=== PATIENT | male | born 1940 | race Caucasian/White ===

== ENCOUNTER 2019-04-11 17:41 | Observation (INO) | payer MEDICARE, OTHER ==
[~2019-04-11] VITALS: Ht 172.7 cm; Wt 106.2 kg
[2019-04-11] MEDS ORDERED: NS IV 1000 ML 1,000 ML IV ONE (18:17)
[2019-04-11] MEDS ORDERED: NS IV 1000 ML 1,000 ML IV SCH (18:17)
--- NOTE | 2019-04-11 18:23 | ED Syncope ---
General Chief Complaint: Neurological Problems Stated Complaint: UNRESPONSIVE Nursing Triage Note: PT PRESENTS TO ED VIA EMS WITH C/O GENERALIZED WEAKNESS AND FATIGUE AFTER SPENDING ALL AFTERNOON AT [email or web address] WITH FAMILY. PT WAS ASSISTED FROM WHEELCHAIR TO TOILET WHEN "LEGS GAVE OUT FROM UNDERNEATH HIM" AND PER PT , PT WAS UNRESPONSIVE FOR 5 MINUTES. PT DENIES UNRESPONSIVENESS AND STATES HE "REMEMBERS EVERYTHING." PT RECENTLY HAD DYSENTERY LAST WEEK AND HAS FELT WEAK AND FATIGUED SINCE. PT HAS LEFT-SIDED ARM DEFICIT FROM PREVIOUS STROKE. PT A/OX3 UPON ARRIVAL. Source of Information: Patient, EMS, Family (daughter), Care Home Records, Spouse Exam Limitations: No Limitations History of Present Illness Date Seen by Provider: Apr 11, 2019 Time Seen by Provider: 17:48 Initial Comments Patient presents to the ER by EMS and is accompanied by his and daughter who are helping care for him with chief complaint of a syncopal episode. He was down from his nursing facility in [facility] with family to attend a [employer] celebration event outside today and then made it back to the hotel and he was feeling particularly tired and when they took him to go to the bathroom in his wheelchair he said he told them he was slipping out of the wheelchair. He then slid down to the floor landed on his rump and says he could remember them talking the entire time but his family says that he was about a minute and a half that he would not respond or open his eyes and then about 5 minutes before he would start talking again. His blood sugar was 150 per EMS. 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 They report he has a 70% paralysis. The patient reports that last weekend he had some dysentery lasted for about 3 days and he's also had a little more increased cough productive of sputum in the past 3 weeks. He has not been seen by anybody nor put on any antibiotics. He denies a history of COPD asthma or using any inha lers. He denies any fevers or chills. He does feel very dehydrated. He has no new weakness or numbness. He has chronic numbness in bilateral lower extremities which makes it hard for him to assist with standing and transferring out of his wheelchair. He has long-standing diabetes greater than 10 years on insulin. He denies striking his head and so does his family. His daughter said she sternal rub to him several times within the first minute before he began to respond to the discomfort. Allergies and Home Medications Allergies Coded Allergies: No Known Drug Allergies (Unverified , 04/11/19) Patient Home Medication List Home Medication List Reviewed: Yes Review of Systems Constitutional: No chills, No dizziness, No fever, No malaise; weakness EENTM: No ear discharge, No ear pain Respiratory: see HPI, cough, phlegm; No short of breath, No wheezing Cardiovascular: No chest pain, No palpitations Gastrointestinal: No abdominal pain, No nausea, No vomiting Genitourinary: decreased output; No discharge; dysuria; No frequency, No hematuria, No hesitancy Musculoskeletal: No back pain, No joint pain Psychiatric/Neurological: Denies Anxiety, Denies Depressed Past Mmtoopd-Fcneam-Zoxeiu Hx Patient Social History Alcohol Use: Denies Use Recreational Drug Use: No Smoking Status: Never a Smoker Recent Foreign Travel: No Contact w/Someone Who Travel: No Recent Infectious Disease Expo: No Physical Exam Vital Signs Vital Signs - First Documented 04/11/19 18:00 Temp 98.3 Pulse 92 Resp 19 B/P (MAP) 107/67 (80) Pulse Ox 93 O2 Delivery Room Air Capillary Refill : Less Than 3 Seconds Height, Weight, BMI Height: 5'10.00" Weight: 224lbs. oz. 101.024744hj; BMI Method:Stated General Appearance: No Apparent Distress, Other (left hemiparesis with contractures, mild) HEENT: PERRL/EOMI, TMs Normal, Normal ENT Inspection, Pharynx Normal, Moist Mucous Membranes Neck: Full Range of Motion, Normal Inspection, Supple Cardiovascular: Regular Rate, Rhythm, No Edema, Normal Peripheral Pulses Respiratory: No Accessory Muscle Use, No Respiratory Distress, Rhonci; No Wheezing Gastrointestinal: Normal Bowel Sounds, Non Tender, Soft Extremities: Normal Capillary Refill, Normal Inspection, Non Tender, No Calf Tenderness, No Pedal Edema Neurologic/Psychiatric: Alert, Oriented x3, Other (stable per reported left- sided deficits upper and lower extremities and left side of face) Cranial Nerves: Normal Hearing, PERRL, Other (quiet, mumbling speech) Progress/Results/Core Measures Results/Orders Lab Results Laboratory Tests Test 04/11/19 17:50 04/11/19 18:23 04/11/19 19:05 04/11/19 20:18 Range/Units White Blood Count 8.9 4.3-11.0 10^3/uL Red Blood Count 4.58 4.35-5.85 10^6/uL Hemoglobin 12.0 L 13.3-17.7 G/DL Hematocrit 37 L 40-54 % Mean Corpuscular Volume 81 80-99 FL Mean Corpuscular Hemoglobin 26 25-34 PG Mean Corpuscular Hemoglobin Concent 32 32-36 G/DL Red Cell Distribution Width 14.8 H 10.0-14.5 % Platelet Count 324 130-400 10^3/uL Mean Platelet Volume 11.0 H 7.4-10.4 FL Neutrophils (%) (Auto) 70 42-75 % Lymphocytes (%) (Auto) 17 12-44 % Monocytes (%) (Auto) 9 0-12 % Eosinophils (%) (Auto) 4 0-10 % Basophils (%) (Auto) 1 0-10 % Neutrophils # (Auto) 6.3 1.8-7.8 X 10^3 Lymphocytes # (Auto) 1.5 1.0-4.0 X 10^3 Monocytes # (Auto) 0.8 0.0-1.0 X 10^3 Eosinophils # (Auto) 0.3 0.0-0.3 10^3/uL Basophils # (Auto) 0.1 0.0-0.1 10^3/uL Prothrombin Time 13.3 12.2-14.7 SEC INR Comment 1.0 0.8-1.4 Activated Partial Thromboplast Time 26 24-35 SEC Sodium Level 139 135-145 MMOL/L Potassium Level 4.1 3.6-5.0 MMOL/L Chloride Level 108 H 98-107 MMOL/L Carbon Dioxide Level 18 L 21-32 MMOL/L Anion Gap 13 5-14 MMOL/L Blood Urea Nitrogen 19 H 7-18 MG/DL Creatinine 1.66 H 0.60-1.30 MG/DL Estimat Glomerular Filtration Rate 40 BUN/Creatinine Ratio 11 Glucose Level 138 H 70-105 MG/DL Calcium Level 9.3 8.5-10.1 MG/DL Corrected Calcium 9.5 8.5-10.1 MG/DL Magnesium Level 1.8 1.8-2.4 MG/DL Total Bilirubin 0.3 0.1-1.0 MG/DL Aspartate Amino Transf (AST/SGOT) 20 5-34 U/L Alanine Aminotransferase (ALT/SGPT) 20 0-55 U/L Alkaline Phosphatase 82 40-136 U/L Troponin I < 0.028 <0.028 NG/ML C-Reactive Protein High Sensitivity 0.22 0.00-0.50 MG/DL B-Type Natriuretic Peptide 75.8 <100.0 PG/ML Total Protein 6.2 L 6.4-8.2 GM/DL Albumin 3.8 3.2-4.5 GM/DL Serum Alcohol < 10 <10 MG/DL Glucometer 134 H 70-110 MG/DL Urine Color YELLOW Urine Clarity CLEAR Urine pH 6.5 5-9 Urine Specific [place] 1.010 L 1.016-1.022 Urine Protein 2+ H NEGATIVE Urine Glucose (UA) NEGATIVE NEGATIVE Urine Ketones NEGATIVE NEGATIVE Urine Nitrite NEGATIVE NEGATIVE Urine Bilirubin NEGATIVE NEGATIVE Urine Urobilinogen NORMAL NORMAL MG/DL Urine Leukocyte Esterase 1+ H NEGATIVE Urine RBC (Auto) NEGATIVE NEGATIVE Urine RBC NONE /HPF Urine WBC 2-5 /HPF Urine Crystals NONE /LPF Urine Bacteria TRACE /HPF Urine Casts NONE /LPF Urine Mucus NEGATIVE /LPF Urine Culture Indicated NO Urine Opiates Screen NEGATIVE NEGATIVE Urine Oxycodone Screen NEGATIVE NEGATIVE Urine Methadone Screen NEGATIVE NEGATIVE Urine Propoxyphene Screen NEGATIVE NEGATIVE Urine Barbiturates Screen NEGATIVE NEGATIVE Ur Tricyclic Antidepressants Screen NEGATIVE NEGATIVE Urine Phencyclidine Screen NEGATIVE NEGATIVE Urine Amphetamines Screen NEGATIVE NEGATIVE Urine Methamphetamines Screen NEGATIVE NEGATIVE Urine Benzodiazepines Screen NEGATIVE NEGATIVE Urine Cocaine Screen NEGATIVE NEGATIVE Urine Cannabinoids Screen NEGATIVE NEGATIVE Blood Gas Puncture Site RIGHT RADIAL Blood Gas Patient Temperature 97.0 Arterial Blood pH 7.41 7.37-7.43 Arterial Blood Partial Pressure CO2 35 35-45 MMHG Arterial Blood Partial Pressure O2 83 79-93 MMHG Arterial Blood HCO3 22 L 23-27 MMOL/L Arterial Blood Total CO2 23.0 21.0-31.0 MMOL/L Arterial Blood Oxygen Saturation 97 94-100 % Arterial Blood Base Excess -2.3 -2.5-2.5 MMOL/L Terrance Test YES-POS Blood Gas Ventilator Setting NO Blood Gas Inspired Oxygen ROOM AIR My Orders Orders - VINCE LABOY Chest 1 View, Ap/Pa Only (04/11/19 18:13) Alcohol (04/11/19 18:13) BNP (04/11/19 18:13) Cbc With Automated Diff (04/11/19 18:13) Comprehensive Metabolic Panel (04/11/19 18:13) Hs C Reactive Protein (04/11/19 18:13) Drug Screen Stat (Urine) (04/11/19 18:13) Magnesium (04/11/19 18:13) Protime With Inr (04/11/19 18:13) Partial Thromboplastin Time (04/11/19 18:13) Troponin I (04/11/19 18:13) Ua Culture If Indicated (04/11/19 18:13) Accucheck Stat ONCE (04/11/19 18:13) Ed Iv/Invasive Line Start (04/11/19 18:13) Straight Cath For Spec.-Adult (04/11/19 18:13) Ekg Tracing (04/11/19 18:13) Continuous Ekg Monitoring (04/11/19 18:13) Ed Iv/Invasive Line Start (04/11/19 18:17) Ns Iv 1000 Ml (Sodium Chloride 0.9%) (04/11/19 18:17) Ns Iv 1000 Ml (Sodium Chloride 0.9%) (04/11/19 18:17) Arterial Blood Gas (04/11/19 20:21) Arterial Blood Draw (04/11/19 20:18) Medications Given in ED Current Medications Medications Dose Ordered Sig/Beni Route Start Time Stop Time Status Last Admin Dose Admin Sodium Chloride 1,000 ml @ 0 mls/hr Q0M ONCE IV 04/11/19 18:17 04/11/19 18:18 DC 04/11/19 19:11 1,000 MLS/HR Vital Signs/I&O 04/11/19 04/11/19 04/11/19 18:00 18:32 20:23 Temp 98.3 98.3 Pulse 92 86 72 Resp 19 12 18 B/P (MAP) 107/67 (80) 105/64 (78) 167/76 (106) Pulse Ox 93 95 97 O2 Delivery Room Air Room Air Room Air Blood Pressure Mean: 80 Progress Progress Note : Time: 18:24 Progress Note Plan to give him 2 L IV fluids would be more than 20 mL/kg based on an ideal body weight adjusted at 84 kg. He is not hypotensive or febrile but his blood pressure is on the low side. Were not able to do orthostatics because he cannot stand. We will obtain EKG chest x-ray and blood to rule out a pneumonia. We will also obtain a sterile catheter specimen or urinalysis. We'll reassess afterwards. His oral mucosa is very dry consistent with his recent history of diarrhea what could possibly be bronchitis versus pneumonia and then spending all day outside in the heat today. Most consistent with a vasovagal syncope during transition. Mexican syncopal risk score 0 points low risk. 1.9% risk of 30-day serious adverse event Initial ECG Impression Date: Apr 11, 2019 Initial ECG Impression Time: 18:27 Initial ECG Rate: 86 Initial ECG Rhythm: Normal Sinus Initial ECG Intervals: QRS (148) Initial ECG Impression: Nonspecific Changes Initial ECG Comparisson: No Previous ECG Available Comment Left bundle branch block with accelerated junctional rhythm and some artifact. No clinically significant ST elevation or depression. Diagnostic Imaging Diagonstic Imaging: Xray Plain Films/CT/US/NM/MRI: chest (1v) Comments NAME: MALINA CHIN MED REC#: [id number] PT STATUS: REG ER : 1940 PHYSICIAN: VINCE LABOY MD ADMIT DATE: 04/11/19/ER Draft Date of Exam:04/11/19 CHEST 1 VIEW, AP/PA ONLY INDICATION: Weakness. FINDINGS: Portable chest. The lungs are well-aerated and clear. Heart is not enlarged. No pulmonary edema. No pneumothorax or pleural effusion. No bony abnormalities. IMPRESSION: Normal portable chest. Dictated on workstation # [id number] Dict: 04/11/191929 Trans: 04/11/191931 AVERY [id number] Interpreted by: KAROL SORIA MD Electronically signed by: Reviewed: Reviewed by Me Departure Communication (Admissions) Time/Spoke to Admitting Phy: 21:00 Discussed the case lab imaging findings with Dr. Edmond and he agrees with an observation stay and some IV fluids for gentle rehydration overnight. Impression Primary Impression: Dehydration Additional Impression: Vasovagal syncope Disposition: 01 HOME, SELF-CARE Condition: Stable Admissions Decision to Admit Reason: Admit from ER (General) Decision to Admit/Date: Apr 11, 2019 Time/Decision to Admit Time: 21:00 Departure-Patient Inst. Referrals: NO,LOCAL PHYSICIAN (PCP/Family) Primary Care Physician VINCE LABOY Apr 11, 2019 18:23
[2019-04-11 18:26] LABS: BASOPHILS # (AUTO) 0.1 10^3/uL (0.0-0.1); BASOPHILS % (AUTO) 1 % (0-10); EOSINOPHILS # (AUTO) 0.3 10^3/uL (0.0-0.3); EOSINOPHILS % (AUTO) 4 % (0-10); HEMATOCRIT 37 % (40-54); LYMPHOCYTES # (AUTO) 1.5 X 10^3 (1.0-4.0); LYMPHOCYTES % (AUTO) 17 % (12-44); MEAN CORPUSCULAR HEMOGLOBIN 26 PG (25-34); MEAN CORPUSCULAR HGB CONC 32 G/DL (32-36); MEAN CORPUSCULAR VOLUME 81 FL (80-99); MONOCYTES # (AUTO) 0.8 X 10^3 (0.0-1.0); MONOCYTES % (AUTO) 9 % (0-12); NEUTROPHILS # (AUTO) 6.3 X 10^3 (1.8-7.8); NEUTROPHILS % (AUTO) 70 % (42-75); PLATELET COUNT 324 10^3/uL (130-400); RED CELL DISTRIBUTION WIDTH 14.8 % (10.0-14.5); WHITE BLOOD COUNT 8.9 10^3/uL (4.3-11.0)
[2019-04-11 18:32] VITALS: BP 105/64
[2019-04-11 18:32] LABS: PROTHROMBIN TIME PATIENT 13.3 SEC (12.2-14.7)
[2019-04-11 18:41] LABS: ALANINE AMINOTRANSFERASE 20 U/L (0-55); ALBUMIN 3.8 GM/DL (3.2-4.5); ALKALINE PHOSPHATASE 82 U/L (40-136); BILIRUBIN,TOTAL 0.3 MG/DL (0.1-1.0); BUN/CREATININE RATIO 11; CALCIUM 9.3 MG/DL (8.5-10.1); CARBON DIOXIDE 18 MMOL/L (21-32); CHLORIDE 108 MMOL/L (98-107); CREATININE SERUM 1.66 MG/DL (0.60-1.30); GFR ESTIMATED 40; GLUCOSE 138 MG/DL (70-105); MAGNESIUM 1.8 MG/DL (1.8-2.4); POTASSIUM 4.1 MMOL/L (3.6-5.0); SODIUM 139 MMOL/L (135-145); TOTAL PROTEIN 6.2 GM/DL (6.4-8.2)
[2019-04-11 19:18] LABS: BILIRUBIN,URINE NEGATIVE (NEGATIVE); CLARITY,URINE CLEAR; COLOR,URINE YELLOW; GLUCOSE, URINE (UA) NEGATIVE (NEGATIVE); KETONES,URINE NEGATIVE (NEGATIVE); LEUKOCYTE ESTERASE ,URINE 1+ (NEGATIVE); NITRITE,URINE NEGATIVE (NEGATIVE); PH,URINE 6.5 (5-9); PROTEIN,URINE 2+ (NEGATIVE); UROBILINOGEN,URINE NORMAL (NORMAL)
[2019-04-11 19:26] LABS: BACTERIA,URINE TRACE /HPF
[2019-04-11 19:29] LABS: AMPHETAMINE SCREEN, URINE NEGATIVE (NEGATIVE); BARBITURATE SCREEN URINE NEGATIVE (NEGATIVE); BENZODIAZEPINES SCREEN URINE NEGATIVE (NEGATIVE); CANNABINOID SCREEN, URINE NEGATIVE (NEGATIVE); COCAINE SCREEN URINE NEGATIVE (NEGATIVE); METHADONE STAT NEGATIVE (NEGATIVE); METHAMPHETAMINE SCREEN URINE S NEGATIVE (NEGATIVE); OPIATE SCREEN URINE NEGATIVE (NEGATIVE); OXYCODONE STAT NEGATIVE (NEGATIVE); PROPOXYPHENE STAT NEGATIVE (NEGATIVE); TRICYCLIC ANTIDEPRESSANTS SCRE NEGATIVE (NEGATIVE)
--- NOTE | 2019-04-11 19:33 | Diagnostic Imaging Report ---
INDICATION: Weakness. FINDINGS: Portable chest. The lungs are well-aerated and clear. Heart is not enlarged. No pulmonary edema. No pneumothorax or pleural effusion. No bony abnormalities. IMPRESSION: Normal portable chest. Dictated by: Dictated on workstation # [id number]
[2019-04-11 20:23] VITALS: BP 167/76
[2019-04-11 20:25] LABS: ABG BASE EXCESS -2.3 MMOL/L (-2.5-2.5); ABG OXYGEN SATURATION 97 % (94-100); ABG PCO2 35 MMHG (35-45); ABG PH 7.41 (7.37-7.43); ABG PO2 83 MMHG (79-93)
[2019-04-11 20:31] LABS: ALLENS TEST YES-POS; INSPIRED O2 ROOM AIR; VENTILATOR NO
[2019-04-11 23:03] VITALS: BP 157/69
[2019-04-11] MEDS ORDERED: ONDANSETRON 4 MG/2 ML (SDV) Z0FRAN IV PRN (23:15)
[2019-04-11] MEDS ORDERED: ANTACID SUSP 30 ML UDC (MYLANTA) PO PRN (23:15)
[2019-04-11] MEDS ORDERED: ACETAMINOPHEN 500 MG TAB (TYLENOL) PO PRN (23:15)
[2019-04-11 23:40] VITALS: BP 182/78
[2019-04-11] MEDS: NS IV 1000 ML 1,000 ML IV SCH (23:53)
[2019-04-12 04:53] VITALS: BP 136/69
[2019-04-12 06:13] LABS: BASOPHILS # (AUTO) 0.1 10^3/uL (0.0-0.1); BASOPHILS % (AUTO) 1 % (0-10); EOSINOPHILS # (AUTO) 0.4 10^3/uL (0.0-0.3); EOSINOPHILS % (AUTO) 4 % (0-10); HEMATOCRIT 35 % (40-54); HEMOGLOBIN 11.1 G/DL (13.3-17.7); LYMPHOCYTES # (AUTO) 2.2 X 10^3 (1.0-4.0); LYMPHOCYTES % (AUTO) 27 % (12-44); MEAN CORPUSCULAR HEMOGLOBIN 26 PG (25-34); MEAN CORPUSCULAR HGB CONC 31 G/DL (32-36); MEAN CORPUSCULAR VOLUME 83 FL (80-99); MEAN PLATELET VOLUME 10.6 FL (7.4-10.4); MONOCYTES # (AUTO) 0.8 X 10^3 (0.0-1.0); MONOCYTES % (AUTO) 9 % (0-12); NEUTROPHILS % (AUTO) 59 % (42-75); PLATELET COUNT 271 10^3/uL (130-400); RED CELL DISTRIBUTION WIDTH 14.7 % (10.0-14.5); WHITE BLOOD COUNT 8.4 10^3/uL (4.3-11.0)
[2019-04-12 06:29] LABS: ALBUMIN 3.3 GM/DL (3.2-4.5); BILIRUBIN,TOTAL 0.3 MG/DL (0.1-1.0); CALCIUM 8.5 MG/DL (8.5-10.1); CREATININE SERUM 1.53 MG/DL (0.60-1.30); TOTAL PROTEIN 5.4 GM/DL (6.4-8.2)
[2019-04-12] MEDS: inSUlin ASPART (NovoLOG) 1 UNIT/0.01 ML (CHARGE PER UNIT) SC SCH ×2 (06:45→11:36)
[2019-04-12 08:00] VITALS: BP 180/83
[2019-04-12] MEDS: NS IV 1000 ML 1,000 ML IV SCH (08:12)
[2019-04-12] MEDS ORDERED: lisINopril 20 MG (PRINIVIL) TABLET PO SCH (09:00)
[2019-04-12] MEDS ORDERED: PENTOXIFYLLINE ER 400 MG (TRENtal) TAB PO SCH (09:00)
[2019-04-12] MEDS ORDERED: amLODIPine 10 MG (NORVASC) TAB PO SCH (09:00)
[2019-04-12] MEDS ORDERED: CLOPIDOGREL 75 MG (PLAVIX) TABLET PO SCH (09:00)
[2019-04-12] MEDS ORDERED: ASPIRIN 81 MG CHEW (CHILDREN'S ASA) PO SCH (09:00)
[2019-04-12] MEDS ORDERED: PANTOPRAZOLE 40 MG (PROTONIX) TAB PO SCH (09:00)
[2019-04-12 12:00] VITALS: BP 183/68
--- NOTE | 2019-04-12 12:48 | History & Physical-Hospitalist ---
History of Present Illness HPI/Chief Complaint The patient is a 78-year-old white male who presented to the emergency room yesterday. He apparently had a syncopal episode. He and his family had come down here for the big [place] celebration. He had worked for [employer] for a number of years in this area. He currently lives in [place] [address] [place]. He has suffered 3 strokes in recent years these have left him with left sided diminished function. His was walking him to the bathroom with a gait belt when he reported he was going to fall and ultimately went to the floor. When he got to the emergency room it was noted that in general the workup was negative but that he appeared to have hypotension. He was admitted for observation and rehydration. Today's blood pressures look much better than at presentation and he and his family are eager to get to their home. It is my understanding that he lives in a care facility. Date Seen 04/12/19 Time Seen by a Provider: 12:43 Attending Physician Collins Min MD PCP No,Local Physician Referring Physician Date of Admission Apr 11, 2019 at 21:05 Home Medications & Allergies Home Medications Reviewed patient Home Medication Reconciliation performed by pharmacy medication reconciliations golf technician and/or nursing. Patients Allergies have been reviewed. Allergies Allergies Coded Allergies No Known Drug Allergies (Unverified04/11/19) Past Nisdivb-Ivdutl-Cbzzfs Hx Past Med/Social Hx: Reviewed Nursing Past Med/Soc Hx Patient Social History Alcohol Use: Denies Use Recreational Drug Use: No Smoking Status: Never a Smoker 2nd Hand Smoke Exposure: No Recent Foreign Travel: No Contact w/other who traveled: No Recent Hopitalizations: No Recent Infectious Disease Expo: No Immunizations Up To Date Date of Pneumonia Vaccine: Aug 29, 2018 Past Medical History Surgeries: Bladder Surgery, Cardiac, Coronary Stent, Eye Surgery, Orthopedic Neurological: Stroke Genitourinary: UTI-Chronic Endocrine: Diabetes, Non-Insulin dep HEENT: Cataract Review of Systems Constitutional: see HPI EENTM: no symptoms reported Respiratory: cough Cardiovascular: no symptoms reported Gastrointestinal: no symptoms reported Genitourinary: decreased output, incontinence Musculoskeletal: muscle weakness (left sided) Physical Exam Physical Exam Vital Signs Vital Signs - First Documented 04/11/19 18:00 Temp 98.3 Pulse 92 Resp 19 B/P (MAP) 107/67 (80) Pulse Ox 93 O2 Delivery Room Air Capillary Refill : Less Than 3 SecondsLess Than 3 Seconds Height, Weight, BMI Height: 5'8.00" Weight: 234lbs. 3.0oz. 106.325782uc; 35.6 BMI Method:Stated General Appearance: No Apparent Distress, WD/WN Eyes: Bilateral Eye Normal Inspection HEENT: Normal ENT Inspection Neck: Full Range of Motion Respiratory: Chest Non Tender, Lungs Clear, Normal Breath Sounds, No Accessory Muscle Use, No Respiratory Distress Cardiovascular: Regular Rate, Rhythm, No Edema, No Gallop, No JVD, No Murmur, Normal Peripheral Pulses Gastrointestinal: Other (large and pendulous belly.) Back: Normal Inspection Extremity: Other (there is contracture at the elbow on the left. There is muscle loss noted in the calf and thigh on the left leg.) Neurologic/Psychiatric: Alert, Oriented x3 Results Results/Procedures Labs Laboratory Tests 04/11/19 17:50 04/12/19 05:42 Patient resulted labs reviewed. Assessment/Plan Admission Diagnosis Hypotension. 2.dehydration. 3.history of 3 previous strokes with likely vaso- motor impairment. Admission Status: Observation Clinical Quality Measures DVT/VTE Risk/Contraindication: Risk Factor Score Per Nursin RFS Level Per Nursing on Admit: 4+=Very High COLLINS MIN MD Apr 12, 2019 12:48
--- NOTE | 2019-04-12 13:07 | Discharge Inst-Simple/Standard ---
Discharge Inst-Standard Patient Instructions/Follow Up Plan of Care/Instructions/FU: Make an effort to take more fluids daily. Resume medications as previously administered at your care facility. Activity as Tolerated: Yes Discharge Diet: ADA Diet LUZ ELENA MIN MD Apr 12, 2019 13:06
--- NOTE | 2019-04-12 13:20 | NUR ---
INSTRUCTIONS TO DTR AND AND VERBALIZED UNDERSTANDING. IV AND TELEMETRY REMOVED. DC'D PER WC WITH FAMILY.
== END 2019-04-12 12:47 | disposition home or self-care (01) ==
LOC: EDUNIT# 17:41 → ER 17:44 → 4TH 21:05 → UNDOADMOB 21:05 → 4TH 22:00 → UNDODISOB 04-12 13:20
PROVIDERS: ADMIT Internal Medicine; ATTEND Internal Medicine
DX: E86.0 Dehydration (principal); I95.9 Hypotension, unspecified; R55 Syncope and collapse; I69.354 Hemiplegia and hemiparesis following cerebral infarction affecting left non-dominant side; E11.9 Type 2 diabetes mellitus without complications; Z66 Do not resuscitate; Z79.4 Long term (current) use of insulin; Z79.82 Long term (current) use of aspirin; Z79.02 Long term (current) use of antithrombotics/antiplatelets; Z79.899 Other long term (current) drug therapy
CPT/HCPCS: 36415; 36600; 51701; 71045; 80053; 80306; 80320; 81000; 82805; 82962; 83735; 83880; 84484; 85025; 85610; 85730; 86141; 93005; 96360; G0378